=== PATIENT | female | born 1935 ===

== ENCOUNTER 2017-10-17 16:51 | Inpatient (IN) | payer MEDICARE ==
[~2017-10-17] VITALS: Ht 162.6 cm; Wt 45.4 kg
[2017-10-17 18:00] VITALS: BP 126/52
[2017-10-17] MEDS ORDERED: ONDANSETRON 4 MG/2 ML VIAL IV PRN (18:00)
[2017-10-17] MEDS ORDERED: MAGNESIUM HYDROXIDE 30 ML LIQUID UDC PO PRN (18:00)
[2017-10-17] MEDS ORDERED: ACETAMINOPHEN 325 MG TABLET PO PRN (18:00)
[2017-10-17] MEDS ORDERED: LACT-246 PO (18:16)
[2017-10-17] MEDS ORDERED: HYDR-3972 PO (18:16)
[2017-10-17] MEDS ORDERED: PROT30LI PO (18:16)
[2017-10-17] MEDS ORDERED: MERO1VIA3 IV (18:16)
[2017-10-17] MEDS ORDERED: FLUC100T8 PO (18:16)
[2017-10-17] MEDS ORDERED: PRED2.5T PO (18:16)
[2017-10-17] MEDS ORDERED: MULT-1017 PO (18:16)
[2017-10-17] MEDS ORDERED: POTA20TA83 PO (18:16)
[2017-10-17] MEDS ORDERED: SPIR1TAB PO (18:16)
--- NOTE | 2017-10-17 19:27 | NUR ---
PATIENT ARRIVED TO UNIT AT 1720 VIA [facility], 126/52, 93 PULSE, 96% ON 2 LITERS, 98.1 ORAL TEMPERATURE, SKIN TEAR NOTED TO LEFT INDEX FINGER, REDNESS NOTED TO SACRUM, PICTURES TAKEN AND PLACED IN CHART, RIGHT 22 GAUGE IV NOTED TO FOREARM, NO COMPLAINTS OF PAIN, NO SIGNS OF DISTRESS, CALL LIGHT PLACED IN REACH, BED LOCKED AND IN LOWEST POSITION, MD NOTIFIED THAT PATIENT ARRIVED AND MEDICATION RECONCILIATION IS READY, ENDORSEMENT GIVEN TO MEDICAL PLANNER
--- NOTE | 2017-10-17 20:00 | NUR ---
Patient in room laying down in bed A/Ox4 with no distress. Has incision site on mid abdominal area with mayra clean and intact. Incision site with no redness and swelling noted. Provided comfort and safety measures
[2017-10-17 20:26] VITALS: BP 133/57
[2017-10-17] MEDS ORDERED: MEROPENEM 1 G VIAL IV SCH (21:00)
[2017-10-17] MEDS: HYDROCODONE/APAP 5-325MG TABLET PO PRN (21:32)
[2017-10-17] MEDS: DOCUSATE SODIUM 100 MG CAPSULE PO SCH (21:32)
[2017-10-17] MEDS: MEROPENEM 1 G in IV NORMAL SALINE 100 ML IV SCH (21:39)
[2017-10-17 22:36] VITALS: BP 128/60
[2017-10-18 05:00] VITALS: BP 130/51
--- NOTE | 2017-10-18 06:41 | NUR ---
drained 100ml of clear yellow fluid from colostomy bag
--- NOTE | 2017-10-18 07:45 | NUR ---
Patient in bed, awake, alert, oriented x 4, not in any form of acute distress. She denies any pain or discomfort at this time. Call light placed within reach. Safety measures maintained.
[2017-10-18] MEDS: PROTEIN SUPPLEMENT (PROSTAT) 30 ML LIQUID PO SCH ×3 (08:00→17:00)
[2017-10-18] MEDS: HYDROCHLOROTHIAZIDE 25 MG TABLET PO SCH (09:00)
[2017-10-18] MEDS ORDERED: IRON PO SCH (09:00)
[2017-10-18] MEDS ORDERED: Medication Not On Formulary EA (Lactose-Reduced Food (Ensure Enlive) 237 ML) PO SCH (09:00)
[2017-10-18] MEDS ORDERED: [UNRECOGNIZED DRUG - OTHER] PO SCH (09:00)
[2017-10-18] MEDS ORDERED: MULTIVITS CA MINERALS PO SCH (09:00)
[2017-10-18] MEDS ORDERED: [UNRECOGNIZED DRUG - OTHER] PO SCH (09:00)
[2017-10-18] MEDS: MEROPENEM 1 G in IV NORMAL SALINE 100 ML IV SCH ×2 (09:17→21:14)
[2017-10-18] MEDS: MULTIVITAMINS,THERAPEUTIC TABLET PO SCH (09:18)
[2017-10-18] MEDS: FLUCONAZOLE 100 MG TABLET PO SCH (09:19)
[2017-10-18] MEDS: SPIRONOLACTONE 25 MG TABLET PO SCH (09:19)
[2017-10-18] MEDS: ENSURE WITH FIBER 237 ML LIQUID (CHOCOLATE) PO SCH ×2 (09:20→17:22)
[2017-10-18] MEDS: predniSONE 2.5 MG TABLET PO SCH (09:20)
[2017-10-18] MEDS: ACIDOPHILUS/BULGARICUS CHEW TAB PO SCH ×2 (13:32→21:13)
[2017-10-18 15:53] VITALS: BP 123/49
--- NOTE | 2017-10-18 18:42 | NUR ---
Assisted patient with her needs. No noted drainage in the colostomy bag. Mid-abdominal incision well coaptated, clean and dry, no noted signs of infection. Turned and repositioned patient every 2 hours. Comfort and safety measures maintained.
[2017-10-18 21:00] VITALS: BP 137/76
[2017-10-18] MEDS: DOCUSATE SODIUM 100 MG CAPSULE PO SCH (21:14)
[2017-10-18] MEDS: HYDROCODONE/APAP 5-325MG TABLET PO PRN (21:14)
--- NOTE | 2017-10-19 05:54 | NUR ---
Very minimal output from drainage bag (~<5 ml). Midabdominal incision intact with mayra in place. No s/s of infection noted. Continue on IV atb, no a/e noted. iv site on left FA patent and intact, no signs of infiltration. Turned and repositioned. Had small BM x 2 during shift. Good pericare done. safety measures maintained throughout shift.
[2017-10-19 06:06] VITALS: BP 122/57
[2017-10-19 07:40] LABS: IRON, SERUM 34 ug/dL (50-175)
[2017-10-19 07:52] LABS: THYROID STIMULATING HORMONE 9.957 mIU/mL (0.358-3.740)
[2017-10-19 07:59] LABS: BASOPHILS # (AUTO) 0.1 K/uL (0.0-8.0); BASOPHILS % (AUTO) 0.9 % (0.0-2.0); EOSINOPHILS # (AUTO) 0.3 K/uL (0.0-0.7); EOSINOPHILS % (AUTO) 2.7 % (0.0-7.0); HEMATOCRIT 32.6 % (31.2-41.9); HEMOGLOBIN 10.9 g/dL (10.9-14.3); LYMPHOCYTES # (AUTO) 1.6 K/uL (20.0-40.0); MEAN CORPUSCULAR HEMOGLOBIN 30.9 uug (24.7-32.8); MEAN CORPUSCULAR HGB CONC 34 g/dL (32.3-35.6); MEAN CORPUSCULAR VOLUME 92.1 fL (75.5-95.3); MONOCYTES # (AUTO) 2.2 K/uL (2.0-10.0); MONOCYTES % (AUTO) 17.1 % (0.0-11.0); NEUTROPHILS # (AUTO) 8.8 K/uL (1.8-8.9); NEUTROPHILS % (AUTO) 67.3 % (38.5-71.5); PLATELET COUNT (AUTO) 409 K/uL (179-408); RED BLOOD CELL COUNT(AUTO) 3.54 MIL/uL (3.63-4.92)
[2017-10-19] MEDS: ENSURE WITH FIBER 237 ML LIQUID (CHOCOLATE) PO SCH ×2 (08:00→17:00)
[2017-10-19] MEDS: PROTEIN SUPPLEMENT (PROSTAT) 30 ML LIQUID PO SCH ×3 (08:00→18:46)
[2017-10-19 08:12] LABS: ALANINE AMINOTRANSFERASE 23 U/L (14-59); ALKALINE PHOSPHATASE 1321 U/L (50-136); ASPARTATE AMINOTRANSFERASE 46 U/L (15-37); BILIRUBIN,TOTAL 2.2 mg/dL (0.2-1.0); CARBON DIOXIDE 28 mmol/L (21-32); CHLORIDE 103 mmol/L (98-107); CHOLESTEROL 99 mg/dL (<200); CREATININE 0.4 mg/dL (0.6-1.3); GLUCOSE 82 mg/dL (74-106); HDL CHOLESTEROL 12 mg/dL (40-60); MAGNESIUM 1.8 mg/dL (1.8-2.4); PHOSPHOROUS 3.4 mg/dL (2.5-4.9); POTASSIUM 4.2 mmol/L (3.5-5.1); TOTAL PROTEIN, SERUM 5.1 g/dL (6.4-8.2); TRIGLYCERIDES 62 MG/DL (30-150); UREA NITROGEN, BLOOD 18 mg/dL (7-18)
[2017-10-19] MEDS: ACIDOPHILUS/BULGARICUS CHEW TAB PO SCH ×2 (10:02→21:18)
[2017-10-19] MEDS: MULTIVITAMINS,THERAPEUTIC TABLET PO SCH (10:02)
[2017-10-19] MEDS: predniSONE 2.5 MG TABLET PO SCH (10:02)
[2017-10-19] MEDS: FLUCONAZOLE 100 MG TABLET PO SCH (10:02)
[2017-10-19] MEDS: HYDROCHLOROTHIAZIDE 25 MG TABLET PO SCH (10:03)
[2017-10-19] MEDS: SPIRONOLACTONE 25 MG TABLET PO SCH (10:03)
[2017-10-19] MEDS: MEROPENEM 1 G in IV NORMAL SALINE 100 ML IV SCH ×3 (10:10→21:18)
[2017-10-19 10:14] LABS: LYMPHOCYTES % (MANUAL) 11 % (20-40); MONOCYTES % (MANUAL) 8 % (2-10); NEUTROPHILS % (MANUAL) 81 % (42-75)
--- NOTE | 2017-10-19 13:32 | NUR ---
IV INFILTRATED. ATTEMPTED TO RESTART X2. SKIN/VEINS VERY FRAGILE SKIN CAME OFF WITH TAPE WHEN DISCONTINUING OLD IV. SHE REQUESTS A MORE PERMANENT IV Addendum: 10/19/17 at [address] RN CALLED MD FOR ORDER FOR MIDLINE INSERTION
--- NOTE | 2017-10-19 15:43 | NUR ---
MIDLINE INSERTED FOR IV ADMINISTRATION AND BLOOD DRAWS.
[2017-10-19 19:30] VITALS: BP 113/53
--- NOTE | 2017-10-19 19:35 | NUR ---
Awake when received. Denies any pain/discomforts at thsi time. Safety measures and fall precaution maintained. Continue care as planned.
[2017-10-19] MEDS: DOCUSATE SODIUM 100 MG CAPSULE PO SCH ×2 (21:00→21:18)
--- NOTE | 2017-10-20 07:37 | NUR ---
Shift End Report: VS stable. Slept good. No complaint presented all night. Attended all needs. No fall/injury. Continue Isolation precaution due to ESBL in the urine. Enterovesicular fistula dry and no s/s of infection. No output noted at this time. No significant event reported. Continue care as planned.
--- NOTE | 2017-10-20 08:33 | NUR ---
INTERDISCIPLINARY TEAM CONFERENCE
[2017-10-20] MEDS: ENSURE WITH FIBER 237 ML LIQUID (CHOCOLATE) PO SCH ×2 (08:53→18:25)
[2017-10-20] MEDS: MEROPENEM 1 G in IV NORMAL SALINE 100 ML IV SCH ×2 (08:53→20:55)
[2017-10-20] MEDS: PROTEIN SUPPLEMENT (PROSTAT) 30 ML LIQUID PO SCH ×3 (08:53→17:00)
[2017-10-20] MEDS: HYDROCHLOROTHIAZIDE 25 MG TABLET PO SCH (08:54)
[2017-10-20] MEDS: MULTIVITAMINS,THERAPEUTIC TABLET PO SCH (08:54)
[2017-10-20] MEDS: FLUCONAZOLE 100 MG TABLET PO SCH (08:54)
[2017-10-20] MEDS: SPIRONOLACTONE 25 MG TABLET PO SCH (08:54)
[2017-10-20] MEDS: ACIDOPHILUS/BULGARICUS CHEW TAB PO SCH ×2 (08:54→20:56)
[2017-10-20] MEDS: predniSONE 2.5 MG TABLET PO SCH (08:54)
[2017-10-20 09:04] VITALS: BP 139/60
[2017-10-20 14:25] LABS: *BLOOD, URINE NEGATIVE (NEGATIVE); *CLARITY,URINE SLIGHTLY CLOUDY (CLEAR); *COLOR,URINE DARK YELLOW (YELLOW); *KETONES,URINE TRACE (NEGATIVE); *PROTEIN,URINE TRACE (NEGATIVE); *UROBILINOGEN,URINE 0.2 E.U./dl (NORMAL); LEUKOCYTE ESTERASE ,URINE NEGATIVE (NEGATIVE); NITRITE, URINE NEGATIVE (NEGATIVE); UGLUCOSE NEGATIVE (NEGATIVE)
[2017-10-20 14:45] LABS: *BILIRUBIN,URIN 2+ (NEGATIVE)
[2017-10-20 15:10] LABS: BACTERIA,URINE FEW /HPF (NONE SEEN); RBC,URINE 0-3 /HPF (0-3); SQUAMOUS EPITHELIAL CELL,UR FEW /HPF (NONE SEEN); YEAST,URINE RARE /HPF (NONE SEEN)
[2017-10-20 16:40] VITALS: BP 114/52
[2017-10-20 20:00] VITALS: BP 132/60
--- NOTE | 2017-10-20 20:10 | NUR ---
Patient received in bed, AAO x4, able to make needs known. No sign of distress or SOB was noted. On room air with O2 sat 94%. Has midabdominal incision intact with mayra in place. No s/s of infection was noted. Has IV line on her Rt arm patent and intact, no signs of infiltration or inflammation. Has an drainage bag on her Rt side of abdomen with very minimal output (~<5 ml). Pain assessed. Safety measures maintained. Bed alarm and brake on, side rails up x2. Call light and personal belongings within reach. Continue to monitor.
[2017-10-20] MEDS: DOCUSATE SODIUM 100 MG CAPSULE PO SCH (20:57)
--- NOTE | 2017-10-20 21:00 | NUR ---
Patient refused to take Colace because she had bowel movement x2 tonight. Continue to monitor.
[2017-10-20] MEDS: HYDROCODONE/APAP 5-325MG TABLET PO PRN (21:13)
[2017-10-21 07:02] VITALS: BP 104/40
--- NOTE | 2017-10-21 07:14 | NUR ---
End of the shift note Patient remained stable throughout the shift. No acute changes noted. Kept patient clean, dry and comfortable. Assessed for pain, pain medication was given as ordered. No sign of acute distress or SOB was noted. patient has a good sleep throughout the night. Brian blood for lab. Monitored vital signs. Safety precautions observed. Hourly rounding done, call light and telephone within reach at all times, bilateral half side rails up and bed brake son for safety. Will endorse accordingly to incoming shift for continuity of care.
[2017-10-21] MEDS: MEROPENEM 1 G in IV NORMAL SALINE 100 ML IV SCH (08:51)
[2017-10-21] MEDS: MULTIVITAMINS,THERAPEUTIC TABLET PO SCH (08:51)
[2017-10-21] MEDS: predniSONE 2.5 MG TABLET PO SCH (08:53)
[2017-10-21] MEDS: ENSURE WITH FIBER 237 ML LIQUID (CHOCOLATE) PO SCH ×2 (08:53→17:15)
[2017-10-21] MEDS: PROTEIN SUPPLEMENT (PROSTAT) 30 ML LIQUID PO SCH ×3 (08:53→17:15)
[2017-10-21] MEDS: ACIDOPHILUS/BULGARICUS CHEW TAB PO SCH ×2 (08:53→20:11)
[2017-10-21] MEDS: HYDROCHLOROTHIAZIDE 25 MG TABLET PO SCH (08:55)
[2017-10-21] MEDS: SPIRONOLACTONE 25 MG TABLET PO SCH (08:56)
[2017-10-21 08:58] VITALS: BP 130/62
--- NOTE | 2017-10-21 12:35 | NUR ---
WOUND CARE CONSULT: PT PRESENTS WITH GENERALIZED PITTING EDEMA (2+) WELL FRAGILE SKIN THAT TEARS EASILY, SKIN TEARS TO LEFT ARM, LEFT INDEX FINGER, AND RASH TO PERINEUM, INNER BUTTOCKS PRESENT ON ADMISSION. RECOMMENDATIONS MADE FOR WOUND CARE AND SKIN PROTECTION. DISCUSSED WITH NURSING STAFF. ALL SKIN PROTECTION MEASURES IN PLACE. WILL SEE PRN. CUADRA IN AGREEMENT WITH PLAN OF CARE. Addendum: 10/21/17 at 1242 by TEMO ALY RN Amended: Links added.
[2017-10-21] MEDS: CLOTRIMAZOLE 1% CREAM 30 GM TUBE TOP SCH (17:14)
--- NOTE | 2017-10-21 18:52 | NUR ---
PSYCH CONSULT ORDERED FOR MD [employer]. SHE SAYS SHE WANTS TO
[2017-10-21 20:00] VITALS: BP 116/48
[2017-10-21] MEDS: DOCUSATE SODIUM 100 MG CAPSULE PO SCH ×2 (20:11→20:32)
[2017-10-21] MEDS: HYDROCODONE/APAP 5-325MG TABLET PO PRN (21:33)
--- NOTE | 2017-10-21 21:58 | NUR ---
Received pt resting in bed. AAO x4. Chyna Cooper MD was at bedside. No acute distress noted. C/o pain on the abdomen and back area, pain med given as ordered. No s/s of infection on surgical site on the abdomen. Pt refused Colace because she has been having BM this morning. Risks and benefits explained x3, still refused. Two episodes of small BM noted as of this time. Pt turned and reposition. Safety measures maintained. Call light and personal belongings within reach. Will continue to monitor.
[2017-10-22 06:40] VITALS: BP 119/46
--- NOTE | 2017-10-22 07:24 | NUR ---
Pt slept comfortably t/o the night. No suicidal ideation or feeling of hopelessness during my shift. Turned and repositioned t/o the night. Will continue to monitor.
[2017-10-22 08:08] VITALS: BP 120/49
[2017-10-22] MEDS: ENSURE WITH FIBER 237 ML LIQUID (CHOCOLATE) PO SCH ×2 (08:34→16:59)
[2017-10-22] MEDS: PROTEIN SUPPLEMENT (PROSTAT) 30 ML LIQUID PO SCH ×3 (08:35→16:59)
[2017-10-22] MEDS: predniSONE 2.5 MG TABLET PO SCH (08:35)
[2017-10-22] MEDS: MULTIVITAMINS,THERAPEUTIC TABLET PO SCH (08:35)
[2017-10-22] MEDS: HYDROCHLOROTHIAZIDE 25 MG TABLET PO SCH (08:35)
[2017-10-22] MEDS: SPIRONOLACTONE 25 MG TABLET PO SCH (08:35)
[2017-10-22] MEDS: ACIDOPHILUS/BULGARICUS CHEW TAB PO SCH ×2 (08:35→21:05)
[2017-10-22] MEDS: CLOTRIMAZOLE 1% CREAM 30 GM TUBE TOP SCH ×2 (08:41→17:00)
[2017-10-22 16:30] VITALS: BP 114/47
[2017-10-22] MEDS: Z GUARD REMEDY PASTE 57 GM TUBE TOP PRN (17:00)
[2017-10-22 20:00] VITALS: BP 112/46
--- NOTE | 2017-10-22 20:00 | NUR ---
Received patient laying comfortably in bed. No acute distress noted. Placed her on O2 2L NC. Reports pain in her back 09/16. Will review her meds. Noted bilateral FA and left finger skin tears. Dressing C/D/I. Noted [place] on her Abd. clean, dry and intact. No signs of infection. Noted open wound on the lower Abd covered ostomy bag to catch drainage. No drainage seen at the moment. Noted redness on the perineal area and sacral. Zguard and Mepilex in place. Safety initiated. Call light within reach. Turn and reposition Q2H. BM soft light brown stool x 1. Will continue to monitor.
[2017-10-22] MEDS: DOCUSATE SODIUM 100 MG CAPSULE PO SCH (21:00)
[2017-10-22] MEDS: HYDROCODONE/APAP 5-325MG TABLET PO PRN (21:29)
[2017-10-23 05:05] VITALS: BP 113/77
--- NOTE | 2017-10-23 05:38 | NUR ---
Patient slept t/o shift. No acute distress noted. Remains A/O x 4. Denies pain. Abdominal mayra left C/D/I. Colostomy bag over open wound has very small amount of serous fluid. Turned and repositioned Q2H. Perineal care provided. Applied ZGuard and Mepilex on sacral area. Vital signs stable. Room kept clutter free. Bed in low and locked position. All meds given as ordered. All needs met. Safety and comfort measures maintained t/o shift.
[2017-10-23] MEDS: predniSONE 2.5 MG TABLET PO SCH (08:50)
[2017-10-23] MEDS: MULTIVITAMINS,THERAPEUTIC TABLET PO SCH (08:50)
[2017-10-23] MEDS: SPIRONOLACTONE 25 MG TABLET PO SCH (08:50)
[2017-10-23] MEDS: ACIDOPHILUS/BULGARICUS CHEW TAB PO SCH ×2 (08:50→21:27)
[2017-10-23] MEDS: HYDROCHLOROTHIAZIDE 25 MG TABLET PO SCH (08:51)
[2017-10-23] MEDS: CLOTRIMAZOLE 1% CREAM 30 GM TUBE TOP SCH ×2 (08:52→16:43)
[2017-10-23] MEDS: PROTEIN SUPPLEMENT (PROSTAT) 30 ML LIQUID PO SCH ×3 (08:52→16:42)
[2017-10-23] MEDS: ENSURE WITH FIBER 237 ML LIQUID (CHOCOLATE) PO SCH ×2 (08:52→16:42)
[2017-10-23] MEDS: Z GUARD REMEDY PASTE 57 GM TUBE TOP PRN (11:22)
[2017-10-23] MEDS: VENLAFAXINE XR 37.5 MG CAP.SR.24H PO SCH (12:42)
--- NOTE | 2017-10-23 13:30 | NUR ---
pt left via ambulance to dr. wheeler office to remove the colostomy bag. VS WNL. All safety needs are met.
--- NOTE | 2017-10-23 15:20 | NUR ---
Pt is back from Dr. Reagan's office visit. VS WNL. No respiratory distress noted. Noted that the removed the bag, picture is taken. No bleeding noted. skin is c/d/i.
[2017-10-23 15:31] VITALS: BP 117/74
[2017-10-23] MEDS: NYSTATIN SUSPENSION 5 ML LIQUID UDC PO SCH ×2 (17:23→21:27)
--- NOTE | 2017-10-23 19:45 | NUR ---
Received pt in bed, AAO x 4 attempting to sleep. No acute distress noted. Denies pain or discomfort. Verbally responsive and able to make needs known. All safety measures and fall precautions maintained. Call light and all personal belongings within reach. Will continue to monitor.
[2017-10-23 20:16] VITALS: BP 114/52
[2017-10-23] MEDS: DOCUSATE SODIUM 100 MG CAPSULE PO SCH (21:00)
[2017-10-23] MEDS: HYDROCODONE/APAP 5-325MG TABLET PO PRN (21:27)
--- NOTE | 2017-10-23 21:35 | NUR ---
Lab reported critical lab of albumin 1.2. Reported to , Dr. Corky Cary at 2135 with no new orders. Safety maintained. No acute distress. Will continue to monitor.
[2017-10-24 05:00] VITALS: BP 129/61
[2017-10-24] MEDS: MULTIVITAMINS,THERAPEUTIC TABLET PO SCH (08:29)
[2017-10-24] MEDS: SPIRONOLACTONE 25 MG TABLET PO SCH (08:29)
[2017-10-24] MEDS: VENLAFAXINE XR 37.5 MG CAP.SR.24H PO SCH (08:31)
[2017-10-24] MEDS: NYSTATIN SUSPENSION 5 ML LIQUID UDC PO SCH ×4 (08:31→20:41)
[2017-10-24] MEDS: predniSONE 2.5 MG TABLET PO SCH (08:31)
[2017-10-24] MEDS: ACIDOPHILUS/BULGARICUS CHEW TAB PO SCH ×2 (08:31→20:41)
[2017-10-24] MEDS: HYDROCHLOROTHIAZIDE 25 MG TABLET PO SCH (08:31)
[2017-10-24] MEDS: PROTEIN SUPPLEMENT (PROSTAT) 30 ML LIQUID PO SCH ×3 (08:32→17:30)
[2017-10-24] MEDS: ENSURE WITH FIBER 237 ML LIQUID (CHOCOLATE) PO SCH ×2 (08:32→17:30)
[2017-10-24 08:35] VITALS: BP 123/54
[2017-10-24] MEDS: CLOTRIMAZOLE 1% CREAM 30 GM TUBE TOP SCH ×2 (09:00→17:30)
--- NOTE | 2017-10-24 13:38 | NUR ---
INTERDISCIPLINARY TEAM CONFERENCE
[2017-10-24 16:04] VITALS: BP 112/43
--- NOTE | 2017-10-24 19:34 | NUR ---
pt stable throughout the day. pt continues to be encouraged to eat with prostat and shake supplement. pt tolerates. air mattress ordered. awaiting mattress. vitals stable. no new orders. will endorse to hris specialist nurse.
[2017-10-24 20:10] VITALS: BP 120/50
--- NOTE | 2017-10-24 20:15 | NUR ---
Patient received in bed, AAO x4, able to make needs known. No sign of distress or SOB was noted. On room air with O2 sat 97%. Has midabdominal incision intact with mayra in place. No s/s of infection was noted. Has IV line on her Rt arm patent and intact, no signs of infiltration or inflammation. Pain assessed. Safety measures maintained. Bed alarm and brake on, side rails up x2. Call light and personal belongings within reach. Continue to monitor.
[2017-10-24] MEDS: DOCUSATE SODIUM 100 MG CAPSULE PO SCH (20:43)
--- NOTE | 2017-10-24 20:50 | NUR ---
Patient has 3 times BM today and preferred to not taking Colace. continue to monitor.
[2017-10-24] MEDS: HYDROCODONE/APAP 5-325MG TABLET PO PRN (21:16)
--- NOTE | 2017-10-24 21:20 | NUR ---
Patient complained of pain on her lower back, rate the pain 7 out of 10 om numeric scale. Narco 5-325 mg was given. Continue to monitor.
--- NOTE | 2017-10-24 23:00 | NUR ---
The air mattress was received and put on the patient's bed. So the patient is on the air mattress. continue to monitor.
[2017-10-25 05:00] VITALS: BP 118/51
--- NOTE | 2017-10-25 05:26 | NUR ---
End of the shift note Patient remained stable throughout the shift. No acute changes noted. Kept patient clean, dry and comfortable. Patient is on air mattress. Assessed for pain, pain medication was given as ordered. No sign of acute distress or SOB was noted. patient has a good sleep throughout the night. Monitored vital signs. Safety precautions observed. Hourly rounding done, call light and telephone within reach at all times, bilateral half side rails up and bed brake son for safety. Will endorse accordingly to incoming shift for continuity of care.
[2017-10-25 08:00] VITALS: BP 113/45
[2017-10-25] MEDS: ACIDOPHILUS/BULGARICUS CHEW TAB PO SCH ×2 (08:16→21:08)
[2017-10-25] MEDS: ENSURE WITH FIBER 237 ML LIQUID (CHOCOLATE) PO SCH ×2 (08:17→17:35)
[2017-10-25] MEDS: NYSTATIN SUSPENSION 5 ML LIQUID UDC PO SCH ×4 (08:17→21:08)
[2017-10-25] MEDS: PROTEIN SUPPLEMENT (PROSTAT) 30 ML LIQUID PO SCH ×3 (08:17→17:36)
[2017-10-25] MEDS: VENLAFAXINE XR 37.5 MG CAP.SR.24H PO SCH (08:17)
[2017-10-25] MEDS: HYDROCHLOROTHIAZIDE 25 MG TABLET PO SCH (08:17)
[2017-10-25] MEDS: MULTIVITAMINS,THERAPEUTIC TABLET PO SCH (08:17)
[2017-10-25] MEDS: predniSONE 2.5 MG TABLET PO SCH (08:17)
[2017-10-25] MEDS: SPIRONOLACTONE 25 MG TABLET PO SCH (08:17)
[2017-10-25] MEDS: CLOTRIMAZOLE 1% CREAM 30 GM TUBE TOP SCH ×2 (08:18→17:35)
[2017-10-25 08:21] VITALS: BP 135/61
--- NOTE | 2017-10-25 09:30 | NUR ---
Received patient, awake, alert x2. With O2 at 2LPM. No pain noted. Not in any form of distress. Air mattress in place.
[2017-10-25 15:47] VITALS: BP 102/34
--- NOTE | 2017-10-25 18:53 | NUR ---
Was able to participate with therapy, although she said she was weaker today than yesterday. No complaints of pain. Not in any form of distress. Continued to encourage small frequent meals.
[2017-10-25 19:38] VITALS: BP 114/47
[2017-10-25] MEDS: DOCUSATE SODIUM 100 MG CAPSULE PO SCH (21:00)
[2017-10-25] MEDS: HYDROCODONE/APAP 5-325MG TABLET PO PRN (21:21)
--- NOTE | 2017-10-26 05:22 | NUR ---
Pt seen on rounding. AAO x4. No acute distress noted, on 2L O2 via NC. C/o pain on the abdomen area last night, [place] was given. Colace was refused as pt has been having multiple BMs t/o the day. Risks and benefits explained, still refused. No s/s of infection on the surgical site. All needs attended to promptly. Safety measures maintained. Call light and personal belongings within reach. Will continue to monitor.
[2017-10-26 05:30] VITALS: BP 118/41
[2017-10-26] MEDS: PROTEIN SUPPLEMENT (PROSTAT) 30 ML LIQUID PO SCH ×3 (08:35→17:03)
[2017-10-26] MEDS: ENSURE WITH FIBER 237 ML LIQUID (CHOCOLATE) PO SCH ×2 (08:35→17:03)
[2017-10-26] MEDS: ACIDOPHILUS/BULGARICUS CHEW TAB PO SCH ×2 (08:36→21:05)
[2017-10-26] MEDS: VENLAFAXINE XR 37.5 MG CAP.SR.24H PO SCH (08:36)
[2017-10-26] MEDS: SPIRONOLACTONE 25 MG TABLET PO SCH (08:36)
[2017-10-26] MEDS: predniSONE 2.5 MG TABLET PO SCH (08:36)
[2017-10-26] MEDS: MULTIVITAMINS,THERAPEUTIC TABLET PO SCH (08:37)
[2017-10-26] MEDS: CLOTRIMAZOLE 1% CREAM 30 GM TUBE TOP SCH ×2 (08:37→17:03)
[2017-10-26] MEDS: NYSTATIN SUSPENSION 5 ML LIQUID UDC PO SCH ×4 (08:37→21:06)
[2017-10-26] MEDS: HYDROCHLOROTHIAZIDE 25 MG TABLET PO SCH (08:42)
[2017-10-26 08:47] VITALS: BP 102/45
[2017-10-26 08:56] VITALS: BP 115/55
[2017-10-26 15:59] VITALS: BP 115/46
--- NOTE | 2017-10-26 17:51 | NUR ---
Daily Nursing Note: Patient was stable all throughout shift, tolerated her therapeutic exercises with PT/OT today, states " i slept good, i feel good." Continues to use oxygen @ 2lpm as needed. Patient ate all her meals well, and was encouraged to do so for the following days, verabalizes understanding. Patient was handled gently during care and was turned and repositioned to offload pressure areas. IV site on MESERET a midline, remains intact and flushing well. No complaints at this time. Dr. Cary made round and was made aware of her low albumin level of 1.2L no new orders were made at this time.
[2017-10-26 20:12] VITALS: BP 110/53
[2017-10-26] MEDS: DOCUSATE SODIUM 100 MG CAPSULE PO SCH (21:00)
[2017-10-26] MEDS: HYDROCODONE/APAP 5-325MG TABLET PO PRN (21:16)
--- NOTE | 2017-10-26 21:55 | NUR ---
Received pt sleeping comfortably in bed. Arouses easily when alerted by name. AAO x4. On 2L O2 via NC, tolerating well. No acute distress noted. C/o pain on the back, turned and repositioned. Meds given as ordered. Refused colace. Explained risks and benefits, still refused. Safety measures maintained. Call light and personal belongings within reach. Will continue to monitor.
[2017-10-27 05:00] VITALS: BP 109/41
[2017-10-27 06:59] LABS: BASOPHILS # (AUTO) 0.1 K/uL (0.0-8.0); BASOPHILS % (AUTO) 0.4 % (0.0-2.0); EOSINOPHILS # (AUTO) 0.5 K/uL (0.0-0.7); EOSINOPHILS % (AUTO) 3.4 % (0.0-7.0); HEMATOCRIT 30.1 % (31.2-41.9); LYMPHOCYTES # (AUTO) 1.5 K/uL (20.0-40.0); LYMPHOCYTES % (AUTO) 10.5 % (20.5-51.5); MEAN CORPUSCULAR HEMOGLOBIN 31.6 uug (24.7-32.8); MEAN CORPUSCULAR HGB CONC 33 g/dL (32.3-35.6); MEAN CORPUSCULAR VOLUME 95.2 fL (75.5-95.3); MONOCYTES # (AUTO) 2.5 K/uL (2.0-10.0); NEUTROPHILS # (AUTO) 9.4 K/uL (1.8-8.9); NEUTROPHILS % (AUTO) 67.7 % (38.5-71.5); PLATELET COUNT (AUTO) 351 K/uL (179-408); RED BLOOD CELL COUNT(AUTO) 3.16 MIL/uL (3.63-4.92); WHITE BLOOD COUNT (AUTO) 13.8 K/uL (3.8-11.8)
[2017-10-27] MEDS: PROTEIN SUPPLEMENT (PROSTAT) 30 ML LIQUID PO SCH ×3 (08:00→17:24)
[2017-10-27] MEDS: ENSURE WITH FIBER 237 ML LIQUID (CHOCOLATE) PO SCH ×2 (08:00→17:24)
[2017-10-27 08:10] LABS: EOSINOPHILS % (MANUAL) 2 % (0-8); LYMPHOCYTES % (MANUAL) 7 % (20-40); MONOCYTES % (MANUAL) 15 % (2-10); NEUTROPHILS % (MANUAL) 76 % (42-75)
[2017-10-27] MEDS: CLOTRIMAZOLE 1% CREAM 30 GM TUBE TOP SCH ×2 (09:00→17:24)
[2017-10-27] MEDS: VENLAFAXINE XR 37.5 MG CAP.SR.24H PO SCH (10:04)
[2017-10-27] MEDS: NYSTATIN SUSPENSION 5 ML LIQUID UDC PO SCH ×4 (10:04→20:28)
[2017-10-27] MEDS: HYDROCHLOROTHIAZIDE 25 MG TABLET PO SCH (10:05)
[2017-10-27] MEDS: predniSONE 2.5 MG TABLET PO SCH (10:05)
[2017-10-27] MEDS: HYDROCODONE/APAP 5-325MG TABLET PO PRN ×2 (10:05→21:45)
[2017-10-27] MEDS: ACIDOPHILUS/BULGARICUS CHEW TAB PO SCH ×2 (10:06→20:28)
[2017-10-27] MEDS: SPIRONOLACTONE 25 MG TABLET PO SCH (10:06)
[2017-10-27] MEDS: MULTIVITAMINS,THERAPEUTIC TABLET PO SCH (10:06)
--- NOTE | 2017-10-27 20:10 | NUR ---
Patient received in bed, AAO x4, able to make needs known. No sign of distress or SOB was noted. On room air with O2 sat 96%. Has midabdominal incision intact with mayra in place. No s/s of infection was noted. Has IV line on her Rt arm patent and intact, no signs of infiltration or inflammation. Pain assessed. Safety measures maintained. Bed alarm and brake on, side rails up x2. Call light and personal belongings within reach. Continue to monitor.
[2017-10-27 20:17] VITALS: BP 112/49
[2017-10-27] MEDS: DOCUSATE SODIUM 100 MG CAPSULE PO SCH (20:29)
--- NOTE | 2017-10-27 21:30 | NUR ---
Patient has 4 times small BM today and preferred to not taking Colace. continue to monitor.
[2017-10-28 03:38] VITALS: BP 121/54
[2017-10-28 06:49] LABS: BASOPHILS # (AUTO) 0.1 K/uL (0.0-8.0); BASOPHILS % (AUTO) 0.7 % (0.0-2.0); EOSINOPHILS # (AUTO) 0.5 K/uL (0.0-0.7); EOSINOPHILS % (AUTO) 3.3 % (0.0-7.0); HEMATOCRIT 29.3 % (31.2-41.9); HEMOGLOBIN 9.7 g/dL (10.9-14.3); LYMPHOCYTES # (AUTO) 1.7 K/uL (20.0-40.0); LYMPHOCYTES % (AUTO) 11.5 % (20.5-51.5); MEAN CORPUSCULAR HEMOGLOBIN 31.5 uug (24.7-32.8); MEAN CORPUSCULAR HGB CONC 33 g/dL (32.3-35.6); MEAN CORPUSCULAR VOLUME 94.9 fL (75.5-95.3); MONOCYTES # (AUTO) 2.9 K/uL (2.0-10.0); MONOCYTES % (AUTO) 19.2 % (0.0-11.0); NEUTROPHILS # (AUTO) 9.8 K/uL (1.8-8.9); NEUTROPHILS % (AUTO) 65.3 % (38.5-71.5); PLATELET COUNT (AUTO) 349 K/uL (179-408); RED BLOOD CELL COUNT(AUTO) 3.09 MIL/uL (3.63-4.92)
[2017-10-28] MEDS: PROTEIN SUPPLEMENT (PROSTAT) 30 ML LIQUID PO SCH ×3 (08:00→17:05)
[2017-10-28] MEDS: ENSURE WITH FIBER 237 ML LIQUID (CHOCOLATE) PO SCH ×2 (08:00→17:05)
[2017-10-28] MEDS: VENLAFAXINE XR 37.5 MG CAP.SR.24H PO SCH (09:00)
[2017-10-28] MEDS: HYDROCHLOROTHIAZIDE 25 MG TABLET PO SCH (09:00)
[2017-10-28] MEDS: ACIDOPHILUS/BULGARICUS CHEW TAB PO SCH ×2 (09:00→20:34)
[2017-10-28] MEDS: SPIRONOLACTONE 25 MG TABLET PO SCH (09:00)
[2017-10-28] MEDS: predniSONE 2.5 MG TABLET PO SCH (09:00)
[2017-10-28] MEDS: MULTIVITAMINS,THERAPEUTIC TABLET PO SCH (09:00)
[2017-10-28] MEDS: NYSTATIN SUSPENSION 5 ML LIQUID UDC PO SCH ×4 (09:01→20:34)
[2017-10-28] MEDS: CLOTRIMAZOLE 1% CREAM 30 GM TUBE TOP SCH ×2 (09:01→17:05)
[2017-10-28 09:50] LABS: EOSINOPHILS % (MANUAL) 4 % (0-8); LYMPHOCYTES % (MANUAL) 17 % (20-40); MONOCYTES % (MANUAL) 14 % (2-10); NEUTROPHILS % (MANUAL) 65 % (42-75)
[2017-10-28 15:47] VITALS: BP 112/45
--- NOTE | 2017-10-28 16:27 | NUR ---
IN BED RESTING QUIETLY. N/C REMOVED O2 SAT DROPS TO 85%-90% ON RA. SHE DISPLAYED DYSPNEA AND TACHYCARDIA WHILE RESTING. REPLACED 2L O2 N/C SATS RETURN TO 99% WITH NO DYSPNEA/DISTRESS NOTED
--- NOTE | 2017-10-28 20:10 | NUR ---
Patient received in bed, AAO x4, able to make needs known. No sign of distress or SOB was noted. On room air with O2 sat 97%. Has midabdominal incision intact, no drainage. No s/s of infection was noted. Has IV line on her Rt arm patent and intact, no signs of infiltration or inflammation. Pain assessed. Safety measures maintained. Bed alarm and brake on, side rails up x2. Call light and personal belongings within reach. Continue to monitor.
[2017-10-28 20:19] VITALS: BP 115/41
[2017-10-28] MEDS: DOCUSATE SODIUM 100 MG CAPSULE PO SCH (20:34)
[2017-10-28] MEDS: HYDROCODONE/APAP 5-325MG TABLET PO PRN (21:15)
--- NOTE | 2017-10-28 21:15 | NUR ---
Patient has 3 times BM today and preferred to not taking Colace. continue to monitor.
[2017-10-29 05:21] VITALS: BP 124/40
--- NOTE | 2017-10-29 05:29 | NUR ---
End of the shift note Patient remained stable throughout the shift. No acute changes noted. Kept patient clean, dry and comfortable. Patient is on air mattress. Assessed for pain, pain medication was given as ordered. No sign of acute distress or SOB was noted. patient has a good sleep throughout the night. Monitored vital signs. Pictures taken and placed in the chart. Safety precautions observed. Hourly rounding done, call light and telephone within reach at all times, bilateral half side rails up and bed brake son for safety. Will endorse accordingly to incoming shift for continuity of care.
[2017-10-29 07:40] LABS: BASOPHILS # (AUTO) 0.1 K/uL (0.0-8.0); BASOPHILS % (AUTO) 0.5 % (0.0-2.0); EOSINOPHILS # (AUTO) 0.5 K/uL (0.0-0.7); EOSINOPHILS % (AUTO) 3.3 % (0.0-7.0); HEMATOCRIT 31.8 % (31.2-41.9); HEMOGLOBIN 10.5 g/dL (10.9-14.3); LYMPHOCYTES # (AUTO) 1.7 K/uL (20.0-40.0); LYMPHOCYTES % (AUTO) 11.9 % (20.5-51.5); MEAN CORPUSCULAR HEMOGLOBIN 31.1 uug (24.7-32.8); MEAN CORPUSCULAR HGB CONC 33 g/dL (32.3-35.6); MEAN CORPUSCULAR VOLUME 94.2 fL (75.5-95.3); MONOCYTES % (AUTO) 20.5 % (0.0-11.0); NEUTROPHILS # (AUTO) 9.3 K/uL (1.8-8.9); NEUTROPHILS % (AUTO) 63.8 % (38.5-71.5); PLATELET COUNT (AUTO) 425 K/uL (179-408); RED BLOOD CELL COUNT(AUTO) 3.38 MIL/uL (3.63-4.92); WHITE BLOOD COUNT (AUTO) 14.6 K/uL (3.8-11.8)
[2017-10-29 07:47] LABS: CARBON DIOXIDE 35 mmol/L (21-32); CHLORIDE 101 mmol/L (98-107); CREATININE 0.3 mg/dL (0.6-1.3); GLUCOSE 73 mg/dL (74-106); POTASSIUM 3.8 mmol/L (3.5-5.1); UREA NITROGEN, BLOOD 20 mg/dL (7-18)
[2017-10-29] MEDS: PROTEIN SUPPLEMENT (PROSTAT) 30 ML LIQUID PO SCH ×3 (08:29→16:36)
[2017-10-29] MEDS: MULTIVITAMINS,THERAPEUTIC TABLET PO SCH (08:30)
[2017-10-29] MEDS: ENSURE WITH FIBER 237 ML LIQUID (CHOCOLATE) PO SCH ×2 (08:30→16:36)
[2017-10-29] MEDS: VENLAFAXINE XR 37.5 MG CAP.SR.24H PO SCH (08:30)
[2017-10-29] MEDS: HYDROCHLOROTHIAZIDE 25 MG TABLET PO SCH (08:30)
[2017-10-29] MEDS: NYSTATIN SUSPENSION 5 ML LIQUID UDC PO SCH ×3 (08:30→16:36)
[2017-10-29] MEDS: CLOTRIMAZOLE 1% CREAM 30 GM TUBE TOP SCH ×2 (08:31→16:37)
[2017-10-29] MEDS: ACIDOPHILUS/BULGARICUS CHEW TAB PO SCH (08:31)
[2017-10-29] MEDS: predniSONE 2.5 MG TABLET PO SCH (08:31)
[2017-10-29] MEDS: SPIRONOLACTONE 25 MG TABLET PO SCH (08:31)
[2017-10-29] MEDS ORDERED: CHOLECALCIFEROL 1,000 UNIT TABLET PO SCH (09:00)
[2017-10-29 09:38] VITALS: BP 117/49
[2017-10-29 09:42] LABS: EOSINOPHILS % (MANUAL) 4 % (0-8); MONOCYTES % (MANUAL) 15 % (2-10)
[2017-10-29 09:44] LABS: LYMPHOCYTES % (MANUAL) 16 % (20-40); NEUTROPHILS % (MANUAL) 65 % (42-75)
[2017-10-29 15:48] VITALS: BP 110/43
--- NOTE | 2017-10-29 18:26 | NUR ---
Patient for discharge to the [facility] assisted living in stable condition. wound picture taken. hemorrhoid bleeding noted. covered with gauze pressed with pressure with good effect. refused dinner meal despite of education and encouragement. will continue monitor
--- NOTE | 2017-10-29 19:23 | NUR ---
Patient discharge around 7pm in stable condition.medical instruction given verbalize understanding. prescribe medication given. MD notified. family aware.
== END 2017-10-29 19:19 | disposition home health service (06) | DRG 391 ==
PROVIDERS: ADMIT Physical Medicine & Rehabilitation Pain Medicine; ATTEND Physical Medicine & Rehabilitation Pain Medicine
DX: K57.20 Diverticulitis of large intestine with perforation and abscess without bleeding (principal); E43 Unspecified severe protein-calorie malnutrition; K76.6 Portal hypertension; B37.49 Other urogenital candidiasis; B37.0 Candidal stomatitis; Z48.815 Encounter for surgical aftercare following surgery on the digestive system; R53.81 Other malaise; I11.0 Hypertensive heart disease with heart failure; I50.9 Heart failure, unspecified; I25.10 Atherosclerotic heart disease of native coronary artery without angina pectoris; K74.60 Unspecified cirrhosis of liver; Z90.49 Acquired absence of other specified parts of digestive tract; D47.2 Monoclonal gammopathy; D64.9 Anemia, unspecified; Z85.3 Personal history of malignant neoplasm of breast; F32.9 Major depressive disorder, single episode, unspecified; Z88.8 Allergy status to other drugs, medicaments and biological substances
CPT/HCPCS: 36415; 82306; 83550; 83605; 83735; 84100; 84443; 85025; 87040; 87086; 92523; 92526; 92610; 97110; 97112; 97116; 97165; 97530; 97535; J2185; J3490; J7512